=== PATIENT | female | born 1960 | race Caucasian/White ===

== ENCOUNTER 2017-12-17 20:32 | Emergency (ER) | payer BC ==
--- NOTE | 2017-12-17 21:16 | EDM.PDOC ---
ED HPI GENERAL MEDICAL PROBLEM - General Chief Complaint: Lower Extremity Injury/Pain Stated Complaint: FELL OFF DOCK AND HURT RT KNEE Time Seen by Provider: 12/17/17 21:00 Source of Information: Reports: Patient, Family History Limitations: Reports: No Limitations - History of Present Illness INITIAL COMMENTS - FREE TEXT/NARRATIVE: 57-year-old female fell off the dock planting her right foot into the frank bottom of the [place] and twisting her knee. She had instant pain, and is now experiencing swelling of the knee. She is unable to bear weight. No significant deformity. No other injury. Onset: Sudden Duration: Hour(s): (Within the last hour) Location: Reports: Lower Extremity, Right Severity: Moderate Associated Symptoms: Reports: No Other Symptoms Right Knee Pain Score (Numeric/FACES): 7 - Related Data Allergies Allergy/AdvReac Type Severity Reaction Status Date / Time latex Allergy Hives Verified 12/17/17 20:58 B.P. 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: Musculoskeletal History: Reports: Arthritis Endocrine/Metabolic History: Reports: Diabetes, Type II Dermatologic History: Reports: Eczema Social & Family History - Tobacco Use Smoking Status *Q: Never Smoker - Caffeine Use Caffeine Use: Reports: Soda - Recreational Drug Use Recreational Drug Use: No Review of Systems - Review of Systems Review Of Systems: See Below Constitutional: Denies: Fever Respiratory: Denies: Shortness of Breath Cardiovascular: Denies: Chest Pain GI/Abdominal: Denies: Abdominal Pain Musculoskeletal: Reports: Other (Right knee pain and swelling) Skin: Denies: Bruising Neurological: Reports: No Symptoms. Denies: Paresthesia Psychiatric: Reports: No Symptoms ED EXAM, GENERAL - Physical Exam Exam: See Below Exam Limited By: No Limitations General Appearance: Alert, No Apparent Distress (Patient appears uncomfortable but not distressed) Respiratory/Chest: No Respiratory Distress Extremities: Other (Exam is otherwise limited to the lower extremities. The right knee is developing an effusion when compared to the left. She has tenderness over the posterior and medial aspect of the knee to palpation, with weakness of the lateral knee with valgus stress and increased pain.) Course - Vital Signs Last Recorded V/S: Last Vital Signs Temp 96.2 F 12/17/17 20:47 Pulse 105 H 12/17/17 20:47 Resp 16 12/17/17 20:47 BP 140/82 12/17/17 20:47 Pulse Ox 97 12/17/17 20:47 - Orders/Labs/Meds Orders: Active Orders 24 hr Category Date Time Status Knee 3V Rt [CR] Stat Exams 12/17/17 21:13 Taken DME for Discharge [COMM] Stat Oth 12/17/17 21:38 Ordered - Re-Assessments/Exams Free Text/Narrative Re-Assessment/Exam: 12/17/17 21:16 A 3 view x-ray of the right knee was obtained. 12/17/17 21:39 Knee x-ray shows no fracture, there is an effusion present. A four-inch Jong wrap was applied to the knee, a knee immobilizer was applied, patient already has her own crutches. She is advised to recheck with orthopedics next week. Departure - Departure Time of Disposition: 22:13 Disposition: Home, Self-Care 01 Condition: Good Clinical Impression: Sprain of knee - Discharge Information Instructions: Knee Sprain, Adult, [id number] Referrals: Aba Saenz MD [Primary Care Provider] - Forms: ED Department Discharge Care Plan Goals: Wrap knee to help control swelling, wear knee immobilizer for comfort and use crutches. Elevating and anti-inflammatories such as ibuprofen or naproxen should help. Recheck with orthopedics next week for advice on further workup or treatment. - My Orders Last 24 Hours: My Active Orders 12/17/17 21:13 Knee 3V Rt [CR] Stat 12/17/17 21:38 DME for Discharge [COMM] Stat - Assessment/Plan Last 24 Hours: My Active Orders 12/17/17 21:13 Knee 3V Rt [CR] Stat 12/17/17 21:38 DME for Discharge [COMM] Stat
--- NOTE | 2017-12-20 08:37 | CR ---
Knee 3V Rt CLINICAL HISTORY: Pain, injury FINDINGS: No acute fracture or dislocation is noted. There are no osseous lesions. There is narrowing of medial joint space. There is patellar spurring. Patient is a joint effusion. Impression: Osteoarthritic change Joint effusion No fracture seen
== END 2017-12-17 22:13 | disposition home or self-care (01) ==
LOC: JP.ED 20:32
DX: S83.91XA Sprain of unspecified site of right knee, initial encounter (principal); I10 Essential (primary) hypertension; E11.9 Type 2 diabetes mellitus without complications; Z91.040 Latex allergy status; Z88.8 Allergy status to other drugs, medicaments and biological substances; Z79.84 Long term (current) use of oral hypoglycemic drugs; X50.9XXA Other and unspecified overexertion or strenuous movements or postures, initial encounter
CPT/HCPCS: 73562-26-RT; 73562-RT; 99284

== ENCOUNTER 2020-02-10 14:35 | Emergency (ER) | payer BC ==
[2020-02-10] MEDS ORDERED: Acetaminophen/HYDROcodone 325-5 MG Tab PO ONE (15:39)
--- NOTE | 2020-02-10 15:45 | EDM.PDOC ---
ED HPI GENERAL MEDICAL PROBLEM - General Chief Complaint: ENT Problem Stated Complaint: EARACHE EXPOSURE TO COVID Time Seen by Provider: 02/10/20 15:30 Source of Information: Reports: Patient, Old Records, RN History Limitations: Reports: No Limitations - History of Present Illness INITIAL COMMENTS - FREE TEXT/NARRATIVE: 59 yo female here with progressive pain behind her L ear for a few days. No injury, fever, or hx of the same. Was in the clinic a couple days ago and had it looked at, but nothing was seen. Hurts to push on this area. 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: Musculoskeletal History: Reports: Arthritis Endocrine/Metabolic History: Reports: Diabetes, Type II Dermatologic History: Reports: Eczema - Infectious Disease History Infectious Disease History: Reports: Chicken Pox, Mumps Social & Family History - Tobacco Use Tobacco Use Status *Q: Never Tobacco User Second Hand Smoke Exposure: No - Caffeine Use Caffeine Use: Reports: Soda - Recreational Drug Use Recreational Drug Use: No ED ROS ENT - Review of Systems Review Of Systems: See Below Constitutional: Reports: No Symptoms HEENT: Reports: No Symptoms Respiratory: Reports: No Symptoms Cardiovascular: Reports: No Symptoms GI/Abdominal: Reports: No Symptoms : Reports: No Symptoms Musculoskeletal: Reports: No Symptoms Skin: Reports: No Symptoms Neurological: Reports: Headache (behind L ear) ED EXAM, ENT - Physical Exam Exam: See Below Exam Limited By: No Limitations General Appearance: Alert, WD/WN, No Apparent Distress Eye Exam: Bilateral Eye: Normal Inspection, PERRL Ears: Normal External Exam, Normal Canal, Hearing Grossly Normal, Normal TMs Nose: Normal Inspection, No Blood. No: Clear Rhinorrhea Mouth/Throat: Normal Inspection, Normal Lips, Normal Oropharynx Head: Atraumatic, Normocephalic, Scalp Tenderness (behind L ear, no redness or bruising) Neck: Normal Inspection. No: Lymphadenopathy (R), Lymphadenopathy (L) Respiratory/Chest: No Respiratory Distress, Lungs Clear, Normal Breath Sounds, No Accessory Muscle Use Cardiovascular: Regular Rate, Rhythm, No Edema Extremities: Normal Inspection Neurological: Alert, Oriented, CN II-XII Intact, Normal Cognition, No Motor/Sensory Deficits Psychiatric: Normal Affect, Normal Mood Skin: Warm, Dry, Intact, Normal Color, No Rash Course - Vital Signs Last Recorded V/S: Last Vital Signs Temp 36.9 C 02/10/20 15:13 Pulse 98 02/10/20 15:13 Resp 16 02/10/20 15:13 BP 131/83 02/10/20 15:13 Pulse Ox 98 02/10/20 15:13 - Orders/Labs/Meds Orders: Active Orders 24 hr Category Date Time Status CORONAVIRUS COVID-19, CH[facility]LER Routine Lab 02/10/20 16:08 Received Labs: Laboratory Tests 02/10/20 02/10/20 Range/Units 15:40 15:40 WBC 5.8 (4.5-11.0) K/uL RBC 5.32 (3.30-5.50) M/uL Hgb 14.4 (12.0-15.0) g/dL Hct 46.7 (36.0-48.0) % MCV 88 (80-98) fL MCH 27 (27-31) pg MCHC 31 L (32-36) % Plt Count 313 (150-400) K/uL C-Reactive Protein 0.90 H (0.0-0.3) mg/dL Meds: Medications Discontinued Medications Generic Name Dose Route Start Last Admin Trade Name Carol Ann PRN Reason Stop Dose Admin Hydrocodone Bitart/Acetaminophen 1 tab 02/10/20 15:39 02/10/20 15:50 [place] 325-5 Mg PO 02/10/20 15:40 1 tab ONETIME ONE Administration Departure - Departure Time of Disposition: 16:53 Disposition: Home, Self-Care 01 Condition: Good Clinical Impression: Mastoiditis Qualifiers: Laterality: left Qualified Code(s): H70.92 - Unspecified mastoiditis, left ear - Discharge Information *PRESCRIPTION DRUG MONITORING PROGRAM REVIEWED*: No *COPY OF PRESCRIPTION DRUG MONITORING REPORT IN PATIENT KATY: No Prescriptions: Amoxicillin/Potassium Clav [Augmentin 875-125 Tablet] 1 each PO Q12H #15 tablet Referrals: PCP,None [Primary Care Provider] - Forms: ED Department Discharge Additional Instructions: Aleve 2 every 8 hrs as needed for pain relief. Add acetaminophen up to 1000 mg every 6 hrs for added relief. Take the antibiotic(Augmentin) every 12 hrs with food. Recheck in the clinic in a few days to make sure you are improving. Sepsis Event Note (ED) - Evaluation Sepsis Screening Result: No Definite Risk - Focused Exam Vital Signs: Vital Signs Temp Pulse Resp BP Pulse Ox 02/10/20 15:13 36.9 C 98 16 131/83 98 - My Orders Last 24 Hours: My Active Orders 02/10/20 16:08 CORONAVIRUS COVID-19, CHANDLER Routine - Assessment/Plan Last 24 Hours: My Active Orders 02/10/20 16:08 CORONAVIRUS COVID-19, [facility]LER Routine
== END 2020-02-10 17:04 | disposition home or self-care (01) ==
LOC: JP.ED 14:35
DX: H70.92 Unspecified mastoiditis, left ear (principal); U07.1 COVID-19; I10 Essential (primary) hypertension; J45.909 Unspecified asthma, uncomplicated; E11.9 Type 2 diabetes mellitus without complications; Z79.899 Other long term (current) drug therapy; Z91.040 Latex allergy status; Z88.8 Allergy status to other drugs, medicaments and biological substances
CPT/HCPCS: 36415; 85027; 86140; 87635; 99283; A9270; U0002